=== PATIENT | male | born 1975 | race Caucasian/White ===

== ENCOUNTER 2018-09-18 20:01 | Emergency (ER) | payer BC, SELFPAY ==
[2018-09-18 20:04] VITALS: BP 169/106; PULSE 91; RESP 16; TEMP 36.8; O2SAT 98
--- NOTE | 2018-09-18 20:12 | DI.RAD_ITS ---
SYMPTOM/DIAGNOSIS: S/P FALL, R/O ACUTE FRACTURE LEFT FOOT: There is a comminuted fracture of the cuboid which tripathi not show significant displacement. There is a fracture of the distal, lateral aspect of the calcaneus, near the calcaneal cuboid joint. The tarsal alignment appears normal. There is some flattening of the second metatarsal head which appears old. There is a small spur at the Achilles insertion on the calcaneus. IMPRESSION: Comminuted cuboid fracture. A small fracture fragment from the lateral aspect of the anterior calcaneus
--- NOTE | 2018-09-18 20:12 | DI.RAD_ITS ---
SYMPTOM/DIAGNOSIS: S/P FALL, R/O ACUTE FRACTURE RIGHT CLAVICLE: No fracture is identified. The AC joint and glenohumeral joint appear intact. There is a small calcification near the greater tuberosity consistent with calcific tendinosis. IMPRESSION: No acute abnormality.
--- NOTE | 2018-09-18 20:12 | DI.RAD_ITS ---
SYMPTOM/DIAGNOSIS: S/P FALL ON TO KNEE, H/O TKR RIGHT KNEE: There are no prior comparison exams. There is a medial femoral tibial joint prosthesis. There is some spurring from the lateral femoral condyle and patella. There is a small joint effusion. No fracture is identified. IMPRESSION: No acute abnormality.
--- NOTE | 2018-09-18 20:12 | DI.RAD_ITS ---
SYMPTOM/DIAGNOSIS: S/P FALL, R/O ACUTE FRACTURE LEFT ANKLE: There is soft tissue swelling around the lateral malleolus. The distal tibia and fibula as well as talar dome appear intact. There is no ankle mortise widening. A cuboid fracture is seen. IMPRESSION: Cuboid fracture. The ankle appears intact.
--- NOTE | 2018-09-18 20:12 | DI.RAD_ITS ---
SYMPTOM/DIAGNOSIS; S/P FALL, R/O ACUTE FRACTURE LEFT KNEE: There is a severely comminuted and severely depressed fracture of the lateral tibial plateau extending to involve the tibial spines. There is some widening of the medial femoral tibial joint space. Hemarthrosis is seen. The patella and distal femur as well as proximal fibula appear intact. IMPRESSION: Comminuted, severely depressed lateral tibial plateau fracture with involvement of the tibial spines.
--- NOTE | 2018-09-18 20:15 | ED.GENADUL_ITS ---
Discharge Plan Disposition Patient Disposition: HOME Condition: Stable Discharge Details Chief Complaint: Orthopedic Clinical Impression: Fracture of left tibial plateau, Calcaneus fracture, left, Abrasion of knee, right, Contusion of right clavicle, Foot fracture Primary Care Provider: None,None ED Provider: Enid Mccormick Home Meds and New Rx's Prescriptions: New oxycodone 5 mg tablet 5 mg PO Q6H PRN (Reason: pain) Qty: 12 RF: 0 Discharge Instructions Instructions: Leg Fracture (ED), Foot Fracture in Adults (ED), Contusion in Adults (ED) Additional Instructions: Rest ice and elevate left lower extremity as much as possible. Do not bear any weight on your left lower extremity. Use the crutches for ambulation. Take 600mg motrin every 6 hours as needed and directed for pain. Take the oxycodone for pain not relieved with tylenol or motrin. Call your orthopedist on Thursday morning to schedule a follow-up appointment for reevaluation as you will most likely need surgery on your left knee and possibly surgery on your left foot. Return immediately to the emergency department if you develop any worsening or new concerning symptoms such as worsening pain, numbness, tingling, or skin color changes to extremity. Referrals: Adama Lofton MD [ [facility] STAFF PHYSICIAN] - Discharge Data Discharge Physician: Enid Mccormick Medical Decision Making 43-year-old male with a history of a right total knee replacement who presents with multiple orthopedic injuries after fall off skateboard prior to arrival. Main complaint of bilateral superficial knee abrasions and left ankle and foot edema and ecchymoses. No head injury, neck pain, back pain, chest pain, abdominal pain. Denies LOC, vomiting. Patient has not taken anything for pain. He also admits to right clavicle pain but there is no obvious deformity and he has full range of motion of his bilateral upper extremities. No extremity deformities noted. Neurovascularly intact. We will give a dose of ibuprofen and sent for right clavicle, bilateral knees, left foot and left ankle x-rays. 2300 --x-rays reviewed and note a left cuboid fracture, and left tibial plateau fracture with depression of the articular surface and lateral displacement of lateral fragment. There is a questionable calcaneus fracture and vrad recommended CT which noted fracture of the anterior calcaneal facet and anterior calcaneal process, in addition to the cuboid, navicular and cuneiform bones. Imaging reviewed with Dr. Lofton -recommends long-leg splint. Patient will need surgical intervention of his tibial plateau fracture. This does not need to be done emergently but patient can follow-up with his orthopedist in [place] for likely surgery within the next week. His foot fractures may or may not require surgery. Case discussed with patient and family in room and patient may travel back to [place], but due to concerns of getting home with his injury, he may decide to stay in the area and may contact Dr. Lofton for surgery. 3 tabs of oxycodone given for home as well as prescription. He is instructed to rest, ice, elevate and nonweightbearing. He is neurovascularly intact post splint placement. He was given crutches. He is instructed to call orthopedics on Thursday morning for follow-up and to return here if he develops any worsening symptoms of worsening pain, numbness, tingling or skin color changes. Medical Records Medical records reviewed: Yes I reviewed the patient's medical records. Imaging Data Radiologic Study: Radiologist's impression: XR Right Clavicle, Complete EXAM DATE/TIME: 09/18/2018 8:16 PM CLINICAL HISTORY: 43 years old, male; Other: S/P fall, R/O acute fracture TECHNIQUE: Imaging protocol: XR Right clavicle complete. Any number of views. COMPARISON: No relevant prior studies available. FINDINGS: Bones/joints: No clavicular fractures are identified. Sternoclavicular alignment is grossly normal. A.c. joint alignment is normal. Glenohumeral alignment is normal. Rounded 3 x 2 mm chronic appearing calcification in the rotator cuff distribution consistent with mild calcific tendinosis. The visualized right ribs are intact. Lungs: The visualized right pulmonary apex is clear. No pneumothorax. Soft tissues: Through and soft tissues are unremarkable. IMPRESSION: 1. No fractures. No evidence of a.c. separation or sternoclavicular separation. 2. Mild chronic calcific tendinosis in the distal rotator cuff. XR Left Ankle EXAM DATE/TIME: 09/18/2018 8:16 PM CLINICAL HISTORY: 43 years old, male; Other: S/P fall; R/O acute fracture TECHNIQUE: Imaging protocol: XR Left ankle. Views: 3 or more views. COMPARISON: No relevant prior studies available. FINDINGS: Bones/joints: There is vague lucency in the cuboid and there appears to be a cortical break in the distal articular surface these findings are concerning for nondisplaced cuboid fracture. There is also a mildly displaced superolateral cortical fragment of the cuboid on the AP view further suggesting cuboid fracture. Dedicated radiographs of the left foot are also suggestive of cuboid fracture. The distal left tibia and fibula are intact. The talus is intact. The navicular is intact. The anterior calcaneal process is somewhat irregular and there is suspicion for possible mildly displaced fracture of the anterior calcaneal process. No periostitis or osteolysis. The ankle mortise joint is well maintained. No joint effusion. No hindfoot coalition. Soft tissues: Moderate anterolateral soft tissue swelling at the ankle. Other findings: The visualized hindfoot and midfoot are grossly well aligned. IMPRESSION: 1. Comminuted mildly displaced cuboid fracture. 2. Suspect possible fracture of the anterior calcaneal process. This could be better confirmed on CT of the ankle. 3. Mild anterolateral soft tissue swelling. XR Left Foot Complete EXAM DATE/TIME: 09/18/2018 8:16 PM CLINICAL HISTORY: 43 years old, male; Other: S/P fall; R/O acute fracture TECHNIQUE: Imaging protocol: XR Left foot. Views: 3 or more views. COMPARISON: No relevant prior studies available. FINDINGS: Bones/joints: Ill-defined lucency in the cuboid consistent with comminuted mildly displaced fracture. The anterior calcaneal process has an irregular configuration suspicious for possible mildly displaced fracture as well. Consider CT assessment for further characterization. 5 mm calcification at the lateral margin of the anterior calcaneal facet may represent a small element of fracture at the edge of the calcaneal facet. Normal alignment is maintained in the midfoot, hindfoot, and forefoot. Joint spaces are well-maintained. No blastic or lytic lesions. No periostitis or osteolysis. No gross ankle joint effusion. No hindfoot coalition. 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 Soft tissues: Mild anterolateral soft tissue swelling at the ankle. Other findings: Normal mineralization. IMPRESSION: 1. Comminuted mildly displaced fracture of the cuboid. 2. Suspected element fracture involving the anterior calcaneal process and lateral margin of the anterior calcaneal facet. 3. Consider CT of the ankle for further characterization. 4. Moderate lateral soft tissue swelling. 5. 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 XR Right Knee Addendum: The technologist contacted me at 9:15 PM on 09/18/2018. They indicated that the exam header information is incorrect on the report. It suggests that the images are of the left knee, however the images for this exam are of the right knee and demonstrate markers indicating that it is the right knee. It was confirmed with the technologist that this represents the right knee images. The tibial plateau fracture is in the left knee. Initial report created on 09/18/2018 9:12:46 PM EDT EXAM DATE/TIME: 09/18/2018 8:16 PM CLINICAL HISTORY: 43 years old, male; Other: S/P fall, R/O acute fracture TECHNIQUE: Imaging protocol: XR Left knee. Views: 4 or more views. COMPARISON: No relevant prior studies available. FINDINGS: Bones/joints: No fracture. Normal alignment. No blastic or lytic lesions. No periostitis or osteolysis. Suspect small joint effusion suprapatellar bursa. Joint spaces are well-maintained. Medial compartment arthroplasty hardware with no gross hardware complication. Soft tissues: No gross soft tissue abnormalities. No foreign bodies. IMPRESSION: 1. No acute osseous abnormalities. 2. Small joint effusion in suprapatellar bursa. 3. Medial compartment arthroplasty with no gross hardware complication. XR Left Knee EXAM DATE/TIME: 09/18/2018 8:16 PM CLINICAL HISTORY: 43 years old, male; Other: S/P fall onto knee, h/o tkr; Prior surgery; Surgery date: 6+ months TECHNIQUE: Imaging protocol: XR Left knee. Views: 4 or more views. COMPARISON: No relevant prior studies available. FINDINGS: Bones/joints: There is a Schatzker type II tibial plateau fracture involving the lateral tibial plateau, with a sagittal cleavage plane and about 1.5 cm lateral displacement of the lateral fragment with approximately 1.5 cm depression of the central articular surface. Suspect nondisplaced component or fracture the lateral tibial spine as well. The proximal left fibula is intact. The distal left femur is intact. The patella is intact. Soft tissues: Moderate lipohemarthrosis in the suprapatellar bursa. IMPRESSION: 1. Schatzker type II lateral tibial plateau fracture with 1.5 cm depression of the articular surface of the lateral tibial plateau and about 1.5 cm lateral displacement of the dominant lateral fragment. 2. Moderate lipohemarthrosis. CT Left Lower Extremity Without Contrast, Ankle EXAM DATE/TIME: 09/18/2018 9:40 PM CLINICAL HISTORY: 43 years old, male; Other: R/O possible FX TECHNIQUE: Imaging protocol: CT of the Left lower extremity without contrast was performed. Exam focused on the ankle. Coronal and sagittal reformatted images were created and reviewed. COMPARISON: CR XR ANKLE LT COMPLETE 09/18/2018 8:33 PM FINDINGS: Bones/joints: There is a moderately comminuted fracture of the cuboid with about 8 mm displacement between the medial and lateral dominant fragments. There is a depressed fracture of the anterior calcaneal facet which is best appreciated on axial image 265 demonstrated about 5 mm depression of the lateral cuboid fragment into the anterior calcaneal facet, with about 3 mm lateral displacement of a few lateral cortical fragments in this region. There is evidence of mildly displaced fracture involving the anterior calcaneal process, with mild comminution. There is a mildly displaced fracture along the inferior proximal margin of the navicular on sagittal image 28, demonstrating 3 mm displacement. There is an additional acute fracture at the plantar margin of the lateral cuneiform with a 5 mm plantar fragment which is displaced about 4 mm on series 4 image 290. The distal left tibia and fibula are intact. The ankle mortise joint is well maintained without joint effusion or erosive changes. No signs of Lisfranc separation. Soft tissues: Mild lateral soft tissue swelling. No hematoma. IMPRESSION: 1. Moderately comminuted and moderately displaced cuboid fracture. 2. Fracture of the anterior calcaneal facet with moderate local comminution and about 10 mm depression of the central lateral articular surface. 3. Mildly displaced and comminuted fracture of the anterior calcaneal process. 4. Small components of mildly displaced fracture are also noted in the inferior proximal navicular and plantar proximal aspect of the lateral cuneiform. HPI General Mode of arrival: wheelchair . Date/Time Provider Initiated Documentation: 09/18/18 20:10 . Limitations to Documentation: no limitations . Information obtained by: patient . HPI Narrative: Patient is a 43-year-old male who presents with left knee and left ankle and foot pain status post fall off skateboard. Patient states he also hit his right knee with abrasions but denies any pain here. He does have a history of right knee replacement in January 2018. Patient also states he believes that he talked and rolled himself and may have hit his right clavicle as he has some pain on the medial aspect but otherwise denies any arm pain, bilateral hip pain, chest pain, abdominal pain, neck pain or back pain. He denies any head injury, LOC or vomiting. Related Data Home Medications Medication Instructions Recorded Confirmed oxycodone 5 mg PO Q6H PRN #12 tab 09/18/18 Previous Rx's Medication Instructions Recorded oxycodone 5 mg PO Q6H PRN #12 tab 09/18/18 Allergies Allergy/AdvReac Type Severity Reaction Status Date / Time Penicillins AdvReac Severe Anaphylaxsi Unverified 09/18/18 20:14 s General Stated Complaint: Orthopedic TARA: 3 Review of Systems Review of Systems All systems reviewed & are unremarkable except as noted in HPI and below Constitutional Reports as per HPI, Denies chills and Denies fever(s) Eyes Denies blurry vision ENT Denies dizziness, Denies sore throat and Denies throat swelling Cardiovascular Denies chest pain and Denies dyspnea Respiratory Denies cough and Denies dyspnea Gastrointestinal Denies abdominal pain, Denies diarrhea and Denies vomiting Genitourinary Denies hematuria and Denies dysuria Musculoskeletal Denies back pain and Denies numbness Integumentary/Breasts Denies lesions and Denies rash Neurologic Denies dizziness, Denies focal weakness and Denies numbness Allergic/Immunologic Denies throat swelling [facility] Medical History HTN (hypertension) (Chronic) Surgical History History of knee replacement (Chronic) Social History Smoking/Tobacco Use Status: Never Alcohol Intake: never Drug use: Never Do you feel safe at home: Yes Do you feel safe in your relationship?: Yes Exam Const General: cooperative and healthy appearing Orientation: alert and awake [facility] Head: normal to inspection, no palpable skull fracture, normocephalic and atraumatic Ears: hearing grossly normal bilaterally, external ears normal and TM's normal bilaterally General nose exam: external nose normal Face and sinus: normal facial exam Mouth: oral mucosae normal Eyes General: appearance normal, both eyes and all related structures Eyelids: eyelids normal Pupils: PERRL EOM: EOM intact bilaterally Neck Neck: normal visual inspection Lymphatic: no lymphadenopathy noted Chest Chest: normal inspection of the chest, normal palpation of entire chest wall, no crepitus and no tenderness Resp Effort & Inspection: normal respiratory effort and able to speak in complete sentences Auscultation: clear to auscultation bilaterally Cardio Rate: regular rate Rhythm: regular rhythm GI Inspection: normal to inspection and no abdominal wall ecchymosis Palpation: soft, not firm, no guarding, no hepatosplenomegaly, no masses and nontender Auscultation: normal bowel sounds Back/Spine/Pelvis Back: no CVA tenderness Cervical Spine: No cervical spinal tenderness Thoracic/Lumbar Spine: No thoracic spinal tenderness and No lumbar spinal tenderness Pelvis: no pain with anterior-posterior compression and no pain with lateral compression Skin General skin exam: no rashes or lesions noted Neuro General: alert and awake Cognition: normal cognition Speech: speech normal Gait: normal gait Motor: muscle tone normal throughout Sensory Exam: no sensory deficits noted Extrem Shoulder/upper arm images: 1. Minimal tenderness to palpation R medial clavicle. No step off, deformity, abrasion, laceration, ecchymoses or edema. Knee images: 1. Superficial abrasions and minimal edema anterior knee. 2. Minimal ecchymoses, edema and pain with ROM but no tenderness, abrasions or lacerations. Ankle/foot/toe images: 1. Tenderness and edema noted to L lateral malleolus and dorsal proximal lateral foot. Other: B/L DP/PT pulses intact. Full range of motion of bilateral upper extremities and lower extremities. No deformity noted to bilateral shoulders or bilateral upper arms. No pain or tenderness palpation or pain with range of motion of bilateral hips. No ligamentous instability noted to bilateral knees. Normal range of motion at right ankle and foot without pain. Some pain with range of motion to left ankle. No deformity noted to bilateral ankles or feet. No tenderness to palpation or evidence of trauma noted to bilateral lower legs or thighs. Psych Appearance: grossly normal Mental Status: mental status grossly normal Speech and Movement: speech and movement normal Affect: normal affect Thought Process: normal Course Vital Signs Temperature 98.2 F 09/18/18 20:04 Pulse 91 H 09/18/18 20:04 Respiratory Rate 16 09/18/18 20:04 Blood Pressure 169/106 H 09/18/18 20:04 Pulse Oximetry 98 09/18/18 20:04 Temperature 98.2 F 09/18/18 20:04 Temperature Source Temporal Artery Scan 09/18/18 20:04 Pulse 91 H 09/18/18 20:04 Respiratory Rate 16 09/18/18 20:04 Respiratory Effort 09/18/18 20:04 Blood Pressure 169/106 H 09/18/18 20:04 Pulse Oximetry 98 09/18/18 20:04 Oxygen Delivery Method Room Air 09/18/18 20:04 Oxygen Flow Rate 0 09/18/18 20:04 Pain Level 6 09/18/18 20:11 Procedures Orthopedic Splinting/Casting Injury #1: Side: left Lower Extremity Injury Location: knee and foot Lower Extremity Immobilizer: posterior splint (long leg splint) Other Orthopedic Equipment: crutches
[2018-09-18] MEDS: Ibuprofen 600 MG TAB PO (20:20)
--- NOTE | 2018-09-18 21:04 | DI.VRAD_ITS ---
EXAM: XR Right Clavicle, Complete EXAM DATE/TIME: 09/18/2018 8:16 PM CLINICAL HISTORY: 43 years old, male; Other: S/P fall, R/O acute fracture TECHNIQUE: Imaging protocol: XR Right clavicle complete. Any number of views. COMPARISON: No relevant prior studies available. FINDINGS: Bones/joints: No clavicular fractures are identified. Sternoclavicular alignment is grossly normal. A.c. joint alignment is normal. Glenohumeral alignment is normal. Rounded 3 x 2 mm chronic appearing calcification in the rotator cuff distribution consistent with mild calcific tendinosis. The visualized right ribs are intact. Lungs: The visualized right pulmonary apex is clear. No pneumothorax. Soft tissues: Through and soft tissues are unremarkable. IMPRESSION: 1. No fractures. No evidence of a.c. separation or sternoclavicular separation. 2. Mild chronic calcific tendinosis in the distal rotator cuff. Dictated and Authenticated by: Oscar Cervantes MD. Ordering:GIANCARLO Rossi MD
--- NOTE | 2018-09-18 21:08 | DI.VRAD_ITS ---
EXAM: XR Left Ankle EXAM DATE/TIME: 09/18/2018 8:16 PM CLINICAL HISTORY: 43 years old, male; Other: S/P fall; R/O acute fracture TECHNIQUE: Imaging protocol: XR Left ankle. Views: 3 or more views. COMPARISON: No relevant prior studies available. FINDINGS: Bones/joints: There is vague lucency in the cuboid and there appears to be a cortical break in the distal articular surface these findings are concerning for nondisplaced cuboid fracture. There is also a mildly displaced superolateral cortical fragment of the cuboid on the AP view further suggesting cuboid fracture. Dedicated radiographs of the left foot are also suggestive of cuboid fracture. The distal left tibia and fibula are intact. The talus is intact. The navicular is intact. The anterior calcaneal process is somewhat irregular and there is suspicion for possible mildly displaced fracture of the anterior calcaneal process. No periostitis or osteolysis. The ankle mortise joint is well maintained. No joint effusion. No hindfoot coalition. Soft tissues: Moderate anterolateral soft tissue swelling at the ankle. Other findings: The visualized hindfoot and midfoot are grossly well aligned. IMPRESSION: 1. Comminuted mildly displaced cuboid fracture. 2. Suspect possible fracture of the anterior calcaneal process. This could be better confirmed on CT of the ankle. 3. Mild anterolateral soft tissue swelling. Dictated and Authenticated by: Oscar Cervantes MD. Ordering:GIANCARLO Rossi MD
--- NOTE | 2018-09-18 21:12 | DI.VRAD_ITS ---
EXAM: XR Left Foot Complete EXAM DATE/TIME: 09/18/2018 8:16 PM CLINICAL HISTORY: 43 years old, male; Other: S/P fall; R/O acute fracture TECHNIQUE: Imaging protocol: XR Left foot. Views: 3 or more views. COMPARISON: No relevant prior studies available. FINDINGS: Bones/joints: Ill-defined lucency in the cuboid consistent with comminuted mildly displaced fracture. The anterior calcaneal process has an irregular configuration suspicious for possible mildly displaced fracture as well. Consider CT assessment for further characterization. 5 mm calcification at the lateral margin of the anterior calcaneal facet may represent a small element of fracture at the edge of the calcaneal facet. Normal alignment is maintained in the midfoot, hindfoot, and forefoot. Joint spaces are well-maintained. No blastic or lytic lesions. No periostitis or osteolysis. No gross ankle joint effusion. No hindfoot coalition. 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 Soft tissues: Mild anterolateral soft tissue swelling at the ankle. Other findings: Normal mineralization. IMPRESSION: 1. Comminuted mildly displaced fracture of the cuboid. 2. Suspected element fracture involving the anterior calcaneal process and lateral margin of the anterior calcaneal facet. 3. Consider CT of the ankle for further characterization. 4. Moderate lateral soft tissue swelling. 5. 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 Dictated and Authenticated by: Oscar Cervantes MD. Ordering:GIANCARLO Rossi MD
--- NOTE | 2018-09-18 21:13 | DI.VRAD_ITS ---
Addendum created by Oscar Cervantes MD on 09/18/2018 10:17:01 PM EDT Addendum: The technologist contacted me at 9:15 PM on 09/18/2018. They indicated that the exam header information is incorrect on the report. It suggests that the images are of the left knee, however the images for this exam are of the right knee and demonstrate markers indicating that it is the right knee. It was confirmed with the technologist that this represents the right knee images. The tibial plateau fracture is in the left knee. Initial report created on 09/18/2018 9:12:46 PM EDT EXAM: XR Left Knee EXAM DATE/TIME: 09/18/2018 8:16 PM CLINICAL HISTORY: 43 years old, male; Other: S/P fall, R/O acute fracture TECHNIQUE: Imaging protocol: XR Left knee. Views: 4 or more views. COMPARISON: No relevant prior studies available. FINDINGS: Bones/joints: No fracture. Normal alignment. No blastic or lytic lesions. No periostitis or osteolysis. Suspect small joint effusion suprapatellar bursa. Joint spaces are well-maintained. Medial compartment arthroplasty hardware with no gross hardware complication. Soft tissues: No gross soft tissue abnormalities. No foreign bodies. IMPRESSION: 1. No acute osseous abnormalities. 2. Small joint effusion in suprapatellar bursa. 3. Medial compartment arthroplasty with no gross hardware complication. Dictated and Authenticated by: Oscar Cervantes MD. Ordering:GIANCARLO Rossi MD
--- NOTE | 2018-09-18 21:16 | DI.VRAD_ITS ---
EXAM: XR Left Knee EXAM DATE/TIME: 09/18/2018 8:16 PM CLINICAL HISTORY: 43 years old, male; Other: S/P fall onto knee, h/o tkr; Prior surgery; Surgery date: 6+ months TECHNIQUE: Imaging protocol: XR Left knee. Views: 4 or more views. COMPARISON: No relevant prior studies available. FINDINGS: Bones/joints: There is a Schatzker type II tibial plateau fracture involving the lateral tibial plateau, with a sagittal cleavage plane and about 1.5 cm lateral displacement of the lateral fragment with approximately 1.5 cm depression of the central articular surface. Suspect nondisplaced component or fracture the lateral tibial spine as well. The proximal left fibula is intact. The distal left femur is intact. The patella is intact. Soft tissues: Moderate lipohemarthrosis in the suprapatellar bursa. IMPRESSION: 1. Schatzker type II lateral tibial plateau fracture with 1.5 cm depression of the articular surface of the lateral tibial plateau and about 1.5 cm lateral displacement of the dominant lateral fragment. 2. Moderate lipohemarthrosis. Dictated and Authenticated by: Oscar Cervantes MD. Ordering:GIANCARLO Rossi MD
--- NOTE | 2018-09-18 21:47 | DI.CT_ITS ---
SYMPTOM/DIAGNOSIS: R/O POSSIBLE CALCANEAL FRACTURE CT LEFT ANKLE: There is a comminuted fracture of the cuboid. There is displacement of a portion of the fracture seen laterally up to 8 mm. There is extension to the articular surface at the calcaneal cuboid joint. There are also fracture fragments from the anterolateral aspect of the calcaneus at the articular surface which shows mild displacement. There is also some impaction. There is a small fracture from the inferior proximal portion of the lateral cuneiform as well as the infra posterior aspect of the navicular. IMPRESSION: Comminuted displaced cuboid fracture. Impaction fracture of the anterior calcaneus at the calcaneal cuboid joint. Small fracture fragments of the inferoposterior aspects of the navicular and lateral cuneiform.
--- NOTE | 2018-09-18 22:24 | DI.VRAD_ITS ---
EXAM: CT Left Lower Extremity Without Contrast, Ankle EXAM DATE/TIME: 09/18/2018 9:40 PM CLINICAL HISTORY: 43 years old, male; Other: R/O possible FX TECHNIQUE: Imaging protocol: CT of the Left lower extremity without contrast was performed. Exam focused on the ankle. Coronal and sagittal reformatted images were created and reviewed. COMPARISON: CR XR ANKLE LT COMPLETE 09/18/2018 8:33 PM FINDINGS: Bones/joints: There is a moderately comminuted fracture of the cuboid with about 8 mm displacement between the medial and lateral dominant fragments. There is a depressed fracture of the anterior calcaneal facet which is best appreciated on axial image 265 demonstrated about 5 mm depression of the lateral cuboid fragment into the anterior calcaneal facet, with about 3 mm lateral displacement of a few lateral cortical fragments in this region. There is evidence of mildly displaced fracture involving the anterior calcaneal process, with mild comminution. There is a mildly displaced fracture along the inferior proximal margin of the navicular on sagittal image 28, demonstrating 3 mm displacement. There is an additional acute fracture at the plantar margin of the lateral cuneiform with a 5 mm plantar fragment which is displaced about 4 mm on series 4 image 290. The distal left tibia and fibula are intact. The ankle mortise joint is well maintained without joint effusion or erosive changes. No signs of Lisfranc separation. Soft tissues: Mild lateral soft tissue swelling. No hematoma. IMPRESSION: 1. Moderately comminuted and moderately displaced cuboid fracture. 2. Fracture of the anterior calcaneal facet with moderate local comminution and about 10 mm depression of the central lateral articular surface. 3. Mildly displaced and comminuted fracture of the anterior calcaneal process. 4. Small components of mildly displaced fracture are also noted in the inferior proximal navicular and plantar proximal aspect of the lateral cuneiform. Dictated and Authenticated by: Oscar Cervantes MD. Ordering:GIANCARLO Rossi MD
[2018-09-18] MEDS: oxyCODONE 5 MG TAB 15 MG PO (23:45)
[2018-09-19 00:11] VITALS: BP 150/92; PULSE 88; RESP 20; O2SAT 98
== END 2018-09-19 00:03 | disposition home or self-care (01) ==
PROVIDERS: Emergency Provider Physician Assistant
DX: S82.142A Displaced bicondylar fracture of left tibia, initial encounter for closed fracture (principal); S92.022A Displaced fracture of anterior process of left calcaneus, initial encounter for closed fracture; S92.212A Displaced fracture of cuboid bone of left foot, initial encounter for closed fracture; S80.211A Abrasion, right knee, initial encounter; V00.131A Fall from skateboard, initial encounter; Z96.651 Presence of right artificial knee joint
CPT/HCPCS: 99284; 73000; 73564; 73610; 73630; 73700; E0114

== ENCOUNTER 2018-09-24 12:33 | Emergency (ER) | payer BC, SELFPAY ==
[2018-09-24 12:36] VITALS: BP 145/96; PULSE 83; RESP 16; TEMP 36.7; O2SAT 99
--- NOTE | 2018-09-24 13:38 | DI.US_ITS ---
SYMPTOMS/DIAGNOSIS: CALF PAIN AFTER TRAUMA LEFT LOWER EXTREMITY ULTRASOUND: The femoral and popliteal veins and visualized calf veins are freely compressible. The Doppler venous waveform augments normally. No thrombus is visible. No superficial thrombophlebitis or Davila's cyst is seen. There is a small amount of edema in the posterior calf adjacent to the muscle. IMPRESSION: Mild soft tissue edema. No evidence of DVT.
--- NOTE | 2018-09-24 14:02 | ED.GENADUL_ITS ---
Discharge Plan Disposition Patient Disposition: HOME Condition: Fair Discharge Details Chief Complaint: Vascular Clinical Impression: Fracture of anterior process of left calcaneus, Left cuboid fracture, Muscle pain Primary Care Provider: Keyla,Local ED Provider: Viola Fleming Home Meds and New Rx's Prescriptions: Continued oxycodone 5 mg tablet 5 mg PO Q6H PRN (Reason: pain) Qty: 12 RF: 0 ibuprofen [Advil] 200 mg Tablet 600 mg PO BID RF: 0 Discharge Instructions Instructions: Musculoskeletal Pain (ED) Additional Instructions: Ultrasound was negative today with no evidence of blood clot. Encourage rest, ice, elevation. Tylenol and/or ibuprofen as needed for discomfort. Please continue with splint until evaluated by orthopedics upcoming appointment. Remain nonweightbearing. If you develop difficulty breathing, shortness of breath, fevers, increased pain or other new/worsening symptoms please seek care urgently once again. Discharge Data Discharge Date/Time-TO BE ENTERED AT DEPARTURE: 09/24/18 16:52 Medical Decision Making Patient is a 43-year-old male presenting today with chief complaint of left calf pain. He reports the pain began yesterday. Patient is currently in a long-leg splint and using crutches after suffering tibial plateau fracture, calcaneus fracture and foot fracture. Patient is scheduled to have surgery this week in [place]. Contacted his surgeon regarding this new onset of calf pain who advised he should seek care in the emergency department with concern for DVT. On exam, patient is resting comfortably. He is endorsing some discomfort with palpation over the posterior aspect of the calf. Calf is soft with no palpable cord. He has good distal pulses. He does have swelling and ecchymosis to the knee as well as the ankle and foot as expected with recent injury. Denies any shortness of breath or difficulty breathing. No history of DVT. Patient is not anticoagulated. Plan to obtain ultrasound. Ultrasound reviewed by radiologist. They do note a small amount of edema in the posterior calf adjacent to the muscle with no evidence of DVT. Discussed these findings with the patient. Encourage rest, ice, elevation. Advised he will need follow-up with orthopedics. We discussed that if pain persist he may need a repeat ultrasound next week. He does have an appointment in 3 days with orthopedic physician to have the leg evaluated. Lino class was remade and applied by myself after a large amount of padding. Ortho-Glass was used. Patient tolerated this well and feels improved with new splint placement. Remains neurovascularly intact after splint application. We discussed new/worsening symptoms and when to seek care urgently once again. All questions and concerns were addressed and he is in agreement this plan. HPI General Mode of arrival: ambulatory (on crutches) . Date/Time Provider Initiated Documentation: 09/24/18 13:09 . Limitations to Documentation: no limitations . Information obtained by: patient, family (accompanied by ) and RN notes reviewed . History of Present Illness 43 year old M presents to the emergency department with the chief complaint of left calf pain, described as mild, with intensity rated at 2. Quality is described as aching (cramping), and is localized to the left and lower extremity. Patient reports no radiation. Patient started experiencing this day(s) (1) and it has been intermittent. No relieving factors improve symptom(s), No exacerbating factors reported . Patient notes no other symptoms.; denies chest pain, cough, fever/chills, loss of appetite, rash and shortness of breath. Patient did receive the following treatments prior to arrival, none Related Data Home Medications Medication Instructions Recorded Confirmed oxycodone 5 mg PO Q6H PRN #12 tab 09/18/18 09/24/18 ibuprofen [Advil] 600 mg PO BID 09/24/18 09/24/18 Previous Rx's Medication Instructions Recorded oxycodone 5 mg PO Q6H PRN #12 tab 09/18/18 Allergies Allergy/AdvReac Type Severity Reaction Status Date / Time Penicillins AdvReac Severe Anaphylaxsi Unverified 09/24/18 12:42 s General Stated Complaint: Vascular TARA: 3 Review of Systems Constitutional Reports as per HPI, Denies chills, Denies fever(s), Denies headache(s) and Denies weakness ENT Denies headache(s) Cardiovascular Reports as per HPI Respiratory Reports as per HPI and Denies cough Musculoskeletal Reports as per HPI and Denies tingling Integumentary/Breasts Reports as per HPI, Denies rash and Denies wounds Neurologic Reports as per HPI, Denies headache(s), Denies tingling, Denies paresthesias and Denies weakness [facility] Medical History HTN (hypertension) (Chronic) Surgical History History of knee replacement (Chronic) Social History Smoking/Tobacco Use Status: Never Alcohol Intake: never Drug use: Never Do you feel safe at home: Yes Do you feel safe in your relationship?: Yes Exam Const General: cooperative, healthy appearing, comfortable, no acute distress, well developed and well groomed Nutritional Appearance: average body habitus and well nourished Orientation: alert and awake Resp Effort & Inspection: normal respiratory effort, able to speak in complete sentences and no respiratory distress Auscultation: clear to auscultation bilaterally Cardio Rate: regular rate Rhythm: regular rhythm Heart Sounds: S1 normal and S2 normal Skin General skin exam: no rashes or lesions noted Lesions: no lesions Rashes: no rashes Trauma: no lacerations or abrasions Neuro General: alert and awake Cognition: normal cognition Speech: speech normal Gait: normal gait Motor: muscle tone normal throughout Sensory Exam: no sensory deficits noted Extrem General: abnormal gait (using crutches) and no calf tenderness bilaterally Left upper extremity: normal capillary refill; abnormal to inspection (in long leg splint, ) Psych Appearance: grossly normal and well kempt Mental Status: mental status grossly normal Speech and Movement: speech and movement normal Course Vital Signs Temperature 36.7 C 09/24/18 12:36 Pulse 83 09/24/18 12:36 Respiratory Rate 16 09/24/18 12:36 Blood Pressure 145/96 H 09/24/18 12:36 Pulse Oximetry 99 09/24/18 12:36 Temperature 36.7 C 09/24/18 12:36 Temperature Source Tympanic 09/24/18 12:36 Pulse 83 09/24/18 12:36 Respiratory Rate 16 09/24/18 12:36 Respiratory Effort Non-Labored 09/24/18 12:41 Blood Pressure 145/96 H 09/24/18 12:36 Blood Pressure Position Sitting 09/24/18 12:36 Pulse Oximetry 99 09/24/18 12:36 Oxygen Delivery Method Room Air 09/24/18 12:36 Oxygen Flow Rate 0 09/24/18 12:36 Pain Level 2 09/24/18 12:36
--- NOTE | 2018-09-24 16:56 | NUR.NOTE ---
practioner and this at bedside placing ortho splint Nursing Note:
[2018-09-24 16:58] VITALS: RESP 14
== END 2018-09-24 16:52 | disposition home or self-care (01) ==
PROVIDERS: Emergency Provider Physician Assistant
DX: S92.022A Displaced fracture of anterior process of left calcaneus, initial encounter for closed fracture (principal); S92.212A Displaced fracture of cuboid bone of left foot, initial encounter for closed fracture; M79.18 Myalgia, other site; V00.131A Fall from skateboard, initial encounter; Y93.51 Activity, roller skating (inline) and skateboarding
CPT/HCPCS: 29505; 99284; 93971